=== PATIENT | female | born 1960 | race Caucasian/White ===

== ENCOUNTER 2022-07-05 15:49 | Outpatient (CLI) | payer OTHER, SELFPAY ==
[2022-07-05 18:22] LABS: Basophils Absolute Auto 0.1 K/mm3 (0.0-0.1); Basophils Percent Auto 0.9 % (0.2-1.2); Eosinophils Absolute Auto 0.1 K/mm3 (0-0.3); Eosinophils Percent Auto 1.8 % (0-4.4); Immature Granulocyte Absolute 0.01 K/mm3 (0.00-0.031); Immature Granulocyte Percent A 0.1 % (0-0.5); Lymphocytes Absolute Auto 2.05 K/mm3 (0.9-3.2); Lymphocytes Percent Auto 26.5 % (18.3-44.2); Mean Corpuscular HGB Conc 33.3 g/dl (32-36); Mean Corpuscular Volume 89.9 fl (80-100); Mean Platelet Volume 10.5 fl (7.4-10.4); Monocytes Absolute Auto 0.6 K/mm3 (0.1-0.6); Monocytes Percent Auto 8.3 % (2.6-8.5); Neutrophils Absolute Auto 4.8 K/mm3 (1.3-6.7); Neutrophils Percent Auto 62.4 % (45.5-73.1); Platelet Count Result 251 k/mm3 (150-375); Red Blood Count 4.67 M/mm3 (4.2-5.4); Red Cell Distribution Width 12.8 % (11.5-14.5); White Blood Count 7.7 K/mm3 (4.5-10.0)
[2022-07-05 19:17] LABS: Alanine Aminotransferase 56 U/L (6-35); Albumin Level 4.6 g/dL (3.5-5.1); Alkaline Phosphatase 75 U/L (38-126); Anion Gap 13 mmol/L (8-16); Aspartate Amino Transferase 69 U/L (14-36); Bilirubin,Total 0.3 mg/dL (0.2-1.3); Blood Urea Nitrogen 16 mg/dL (7-17); Calcium 9.5 mg/dL (8.4-10.2); Carbon Dioxide 26 mmol/L (22-30); Chloride 96 mmol/L (98-107); Estimated Glomerular Filt Rate > 60; Glucose 89 mg/dL (65-110); Potassium 3.8 mmol/L (3.4-5.0); Sodium 135 mmol/L (137-145)
[2022-07-05 19:48] LABS: Hemoglobin A1C 6.5 % (<5.7)
== END 2022-07-05 15:50 | disposition home or self-care (01) ==
LOC: ANHGOSHLAB 15:50
PROVIDERS: PCP Family Medicine; Visit Provider Nurse Practitioner Family
DX: E11.9 Type 2 diabetes mellitus without complications (principal); I10 Essential (primary) hypertension
CPT/HCPCS: 36415; 80053; 83036; 85025

== ENCOUNTER 2023-01-03 15:22 | Outpatient (CLI) | payer OTHER, SELFPAY ==
[2023-01-03 19:10] LABS: Basophils Absolute Auto 0.1 K/mm3 (0.0-0.1); Basophils Percent Auto 0.9 % (0.2-1.2); Eosinophils Absolute Auto 0.1 K/mm3 (0-0.3); Eosinophils Percent Auto 1.1 % (0-4.4); Hematocrit 43.7 % (37.0-47.0); Hemoglobin 14.6 g/dL (12.0-15.0); Immature Granulocyte Absolute 0.03 K/mm3 (0.00-0.031); Immature Granulocyte Percent A 0.4 % (0-0.5); Lymphocytes Absolute Auto 1.65 K/mm3 (0.9-3.2); Lymphocytes Percent Auto 22.2 % (18.3-44.2); Mean Corpuscular HGB Conc 33.4 g/dl (32-36); Mean Corpuscular Hemoglobin 29.9 pg (26-34); Mean Corpuscular Volume 89.5 fl (80-100); Mean Platelet Volume 10.5 fl (7.4-10.4); Monocytes Absolute Auto 0.5 K/mm3 (0.1-0.6); Monocytes Percent Auto 7.3 % (2.6-8.5); Neutrophils Absolute Auto 5.1 K/mm3 (1.3-6.7); Neutrophils Percent Auto 68.1 % (45.5-73.1); Platelet Count Result 244 k/mm3 (150-375); Red Blood Count 4.88 M/mm3 (4.2-5.4); Red Cell Distribution Width 13.1 % (11.5-14.5); White Blood Count 7.4 K/mm3 (4.5-10.0)
[2023-01-03 19:21] LABS: Alanine Aminotransferase 76 U/L (6-35); Albumin Level 4.8 g/dL (3.5-5.1); Alkaline Phosphatase 78 U/L (38-126); Anion Gap 10 mmol/L (8-16); Aspartate Amino Transferase 85 U/L (14-36); Bilirubin,Total 0.6 mg/dL (0.2-1.3); Blood Urea Nitrogen 13 mg/dL (7-17); Calcium 10.5 mg/dL (8.4-10.2); Carbon Dioxide 31 mmol/L (22-30); Chloride 97 mmol/L (98-107); Estimated Glomerular Filt Rate > 60; Glucose 210 mg/dL (65-110); Potassium 4.2 mmol/L (3.4-5.0); Sodium 138 mmol/L (137-145)
[2023-01-03 19:38] LABS: Hemoglobin A1C 6.8 % (<5.7)
[2023-01-03 20:05] LABS: MALB Creatinine Ratio 16.3 mg/g (0-30); Microalbumin Urine Random 9.8 mg/L (0-16.7)
== END 2023-01-03 15:23 | disposition home or self-care (01) ==
LOC: ANHGOSHLAB 15:23
PROVIDERS: PCP Family Medicine; Visit Provider Nurse Practitioner Family
DX: E11.9 Type 2 diabetes mellitus without complications (principal); I10 Essential (primary) hypertension
CPT/HCPCS: 36415; 80053; 82043; 83036; 85025

== ENCOUNTER 2025-01-15 07:46 | Outpatient (CLI) | payer OTHER, SELFPAY ==
--- NOTE | ~2025-01-15 | XR_ITS ---
AP view of the pelvis and AP and lateral views of the left hip Clinical history: Pain Findings: No acute fracture or dislocation is seen. Osseous alignment is anatomic. Bilateral hip and SI joint spaces are preserved. Soft tissues are unremarkable. Impression: No significant abnormality is seen. Reviewed, dictated and finalized at [facility]. Impression: No significant abnormality is seen.
--- OUTSIDE RECORDS SUMMARY | 2025-01-15 07:51 | XMS_ITS | Clinical Summary ---
Author Organization [facility] Address [address] [place] [address] Phone Care Team Providers Care General Foreman Name Role Phone Lisa Padilla MD Primary Care Provider Allergies No known active allergies Medications metFORMIN (GLUCOPHAGE) 1000 MG Tablet Take 1,000 mg by mouth 2 times daily. 12/10/2020 Active gabapentin (NEURONTIN) 300 MG Capsule TAKE 1 CAPSULE BY MOUTH EVERY 8 HOURS 12/10/2020 Active ALPRAZolam (XANAX) 0.25 MG Tablet TAKE 1 TABLET BY MOUTH TWICE DAILY NEEDED FOR ANXIETY 01/22/2021 Active celecoxib (CeleBREX) 100 MG Capsule TAKE 1 CAPSULE BY MOUTH DAILY 01/18/2021 Active lisinopril-hydr oCHLOROthiazide (PRINZIDE, ZESTORETIC) 20-25 MG Tablet Take 1 Tablet by mouth daily. 01/29/2021 Active simvastatin (ZOCOR) 40 MG Tablet TAKE ONE TABLET BY MOUTH EVERY EVENING 01/28/2021 Active Multiple Vitamin (MULTI-VITAMIN PO) Take by mouth. Active Calcium Carbonate (CALCIUM 600 PO) Take by mouth. Active Magnesium 250 MG Tablet Take by mouth. Active Active Problems No known active problems Encounters Date Type Department Care Team Description 12/03/2024 2:58 PM VETERINARY VIRUS SERUM INSPECTOR - 12/03/2024 11:59 PM VETERINARY VIRUS SERUM INSPECTOR Hospital Encounter [facility] [address] [place] [address] Edward Padilla MD Discharge Disposition: Discharged to home or Selfcare 12/03/2024 Travel from Last 3 Months Immunizations Immunization Administration Dates Next Due Covid-19, Mrna, Lnp-s, Pf, 30 Mcg/0.3 Ml Dose (P fizer) 01/12/2021 Family History Medical History Relation Name Comments Hypertension Father Diabetes Maternal Grandmother Hypertension Mother Leukemia/Lymphoma Mother Stroke Mother Relation Name Status Comments Father Maternal Grandmother Mother Social History Tobacco Use Types Packs/Day Years Used Date Smoking Tobacco: Never Smokeless Tobacco: Never Tobacco Cessation:Counseling Given: No Alcohol Use Standard Drinks/Week Comments Not Currently 0 (1 standard drink = 0.6 oz pur e alcohol) Sexually Active Control Partners Comments Not Currently Comments No Sex and Gender Information Value Date Recorded Sex Assigned at Not on file Legal Sex Female 9:54 PM CDT Gender Identity Not on file Sexual Orientation Not on file Last Filed Vital Signs Vital Sign Reading Time Taken Comments Blood Pressure 122/86 02/02/2021 2:08 PM CDT Pulse 82 02/02/2021 2:08 PM CDT Temperature 36.3 C (97.3 F) 02/02/2021 2:08 PM CDT Respiratory Rate 16 02/02/2021 2:08 PM CDT Oxygen Saturation 98% 02/02/2021 2:08 PM CDT Inhaled Oxygen Concentration - - Weight 85.7 kg (189 lb) 02/02/2021 2:08 PM CDT Height 170.2 cm (5' 7 ) 02/02/2021 2:08 PM CDT Body Mass Index 29.6 02/02/2021 2:08 PM CDT Plan of Treatment Health Maintenance Due Date Last Done Comments Hepatitis C Virus (HCV) Screening 1960 TdaP Immunization 1960 Pap Smear 1981 Cervical Cancer Screening (CCS) 1990 HPV/Cotest 1990 Colonoscopy 2005 Colorectal Cancer Screening 2005 Cologuard 2010 Immunochemical Fecal Occult Blood 2010 Pneumococcal Immunization (50+ years) (1 of 1 - PCV) 2010 Zoster Immunization (1 of 2) 2010 Influenza Immunization (#1) 2024 SARS-COV-2 Immunization ( season) 2024 10/11/2022, 04/19/2022, 08/18/2021, Additional history exists Mammogram 12/03/2025 12/03/2024, 12/11, 03/11/2018, Additional history exists Respiratory Syncytial Virus (RSV) Immunization (Adult) (1 - 1-dose 75+ series) 2035 Hepatitis B Immunization Aged Out No longer eligible based on patient's age to complete this topic Meningococcal Immunization (ACWY) Aged Out No longer eligible based on patient's age to complete this topic Pneumococcal Immunization Combined Aged Out No longer eligible based on patient's age to complete this topic Rotavirus Immunization Aged Out No lo nger eligible based on patient's age to complete this topic Procedures Procedure Name Priority Date/Time Associated Diagnosis Comments RERE SCREENING BILATERAL DIGITAL W CAD W SADIE Routine 12/03/2024 3:25 PM VETERINARY VIRUS SERUM INSPECTOR Visit for screening mammogram from Last 3 Months Results * RERE SCREENING BILATERAL DIGITAL W CAD W SADIE (12/03/2024 3:25 PM VETERINARY VIRUS SERUM INSPECTOR) Anatomical Region Laterality Modality breast Bilateral Mammography 12/03/2024 2:59 PM VETERINARY VIRUS SERUM INSPECTOR Narrative 12/06/2024 7:18 AM VETERINARY VIRUS SERUM INSPECTOR - RERE SCREENING BILATERAL DIGITAL W CAD W SADIE BILATERAL DIGITAL SCREENING MAMMOGRAM 3D/2D WITH CAD WITH MEDIOLATERAL OBLIQUE CRANIOCAUDAL: 12/03/2024 The study was acquired using digital technology and interpreted from soft copy. Current study was also evaluated with ICAD version 7.2. 2D digital mammographic views, as well as 3D digital tomosynthesis were performed in the CC and MLO projections. CLINICAL: Routine screening. Patient has no complaints. No personal history of cancer. No family history of breast cancer. COMPARISONS: Comparison is made to exams dated: 12/23/2020, 03/11/2018, and 02/22/2017 [facility]. BREAST TISSUE:The breasts are heterogeneously dense, which may obscure small masses. FINDINGS: There are benign calcifications in the right breast. There also are benign vascular calcifications in both breasts. No significant masses, calcifications, or other findings are seen in either breast. There has been no significant interval change. IMPRESSION: BENIGN There is no mammographic evidence of malignancy. A 1 year screening mammogram is recommended. A letter will be sent to the patient with these results. The patient will be entered into a reminder system with a target due date of 1 year for her next screening exam. Electronically signed by: Blossom river/penrad:12/03/2024 17:09:43 Genetics Teacher(s): RT Louis(R)(M), [facility] letter sent: Normal Exam Reading location: [facility] Mammogram BI-RADS: Category 2: Benign Procedure Note Blossom Castanon MD - 12/06/2024 - RERE SCREENING BILATERAL DIGITAL W CAD W SADIE BILATERAL DIGITAL SCREENING MAMMOGRAM 3D/2D WITH CAD WITH MEDIOLATERAL OBLIQUE CRANIOCAUDAL: 12/03/2024 The study was acquired using digital technology and interpreted from soft copy. Current study was also evaluated with ICAD version 7.2. 2D digital mammographic views, as well as 3D digital tomosynthesis were performed in the CC and MLO projections. CLINICAL: Routine screening. Patient has no complaints. No personal history of cancer. No family history of breast cancer. COMPARISONS: Comparison is made to exams dated: 12/23/2020, 03/11/2018, and 02/22/2017 [facility]. BREAST TISSUE:The breasts are heterogeneously dense, which may obscure small masses. FINDINGS: There are benign calcifications in the right breast. There also are benign vascular calcifications in both breasts. No significant masses, calcifications, or other findings are seen in either breast. There has been no significant interval change. IMPRESSION: BENIGN There is no mammographic evidence of malignancy. A 1 year screening mammogram is recommended. A letter will be sent to the patient with these results. The patient will be entered into a reminder system with a target due date of 1 year for her next screening exam. Electronically signed by: Blossom river/penrad:12/03/2024 17:09:43 Genetics Teacher(s): RT Louis(R)(M), [facility] letter sent: Normal Exam Reading location: [facility] Mammogram BI-RADS: Category 2: Benign Lisa Padilla MD IMG MAMMO ORDERABLES F inal Result from Last 3 Months Insurance [employer]bag Care Teams General Foreman Relationship Specialty Start Date End Date Lisa Padilla MD PCP - General Family Medicine 03/11/18
[2025-01-15 08:13] LABS: Eosinophils Absolute Auto 0.1 K/mm3 (0-0.3); Eosinophils Percent Auto 1.9 % (0-4.4); Hematocrit 44.3 % (37.0-47.0); Hemoglobin 14.6 g/dL (12.0-15.0); Lymphocytes Absolute Auto 1.26 K/mm3 (0.9-3.2); Lymphocytes Percent Auto 30.7 % (18.3-44.2); Mean Corpuscular Volume 91.2 fl (80-100); Mean Platelet Volume 9.7 fl (7.4-10.4); Monocytes Absolute Auto 0.5 K/mm3 (0.1-0.6); Monocytes Percent Auto 11.2 % (2.6-8.5); Neutrophils Absolute Auto 2.3 K/mm3 (1.3-6.7); Neutrophils Percent Auto 55.2 % (45.5-73.1); Platelet Count Result 210 k/mm3 (150-375); Red Blood Count 4.86 M/mm3 (4.2-5.4); Red Cell Distribution Width 12.7 % (11.5-14.5); White Blood Count 4.1 K/mm3 (4.5-10.0)
[2025-01-15 08:24] LABS: Alanine Aminotransferase 26 U/L (6-35); Albumin Level 4.8 g/dL (3.5-5.1); Alkaline Phosphatase 93 U/L (38-126); Anion Gap 7 mmol/L (4-12); Aspartate Amino Transferase 35 U/L (14-36); Bilirubin,Total 0.8 mg/dL (0.2-1.3); Blood Urea Nitrogen 17 mg/dL (7-17); Calcium 10.4 mg/dL (8.4-10.2); Carbon Dioxide 33 mmol/L (22-30); Chloride 98 mmol/L (98-107); Cholesterol 167 mg/dL (0-200); Estimated Glomerular Filt Rate > 60; Glucose 107 mg/dL (65-110); HDL Direct 61 mg/dL; Potassium 3.8 mmol/L (3.4-5.0); Sodium 138 mmol/L (137-145); Triglycerides 103 mg/dL (<150)
[2025-01-15 08:35] LABS: LDL Cholesterol Direct 79 mg/dL
[2025-01-15 09:13] LABS: Vitamin D 25 Hydroxy 64.8 ng/mL
== END 2025-01-15 07:47 | disposition home or self-care (01) ==
LOC: ANHLAB 07:49
PROVIDERS: PCP Nurse Practitioner Family; Visit Provider Nurse Practitioner Family
DX: M25.552 Pain in left hip (principal); E78.5 Hyperlipidemia, unspecified; I10 Essential (primary) hypertension; E55.9 Vitamin D deficiency, unspecified; E11.9 Type 2 diabetes mellitus without complications
CPT/HCPCS: 36415; 73502; 80053; 80061; 82306; 83036; 84443; 85025

== ENCOUNTER 2025-07-29 08:21 | Outpatient (CLI) | payer OTHER, SELFPAY ==
--- OUTSIDE RECORDS SUMMARY | 2025-07-29 08:30 | XMS_ITS | Clinical Summary ---
Author Organization [facility] Address [address] [place] [address] Phone Care Team Providers Care Scarf And Anneal Operator Name Role Phone Lisa Padilla MD Primary [...] Active Active Problems No known active problems Immunizations Immunization Administration Dates Next Due Covid-19, Mrna, Lnp-s, Pf, 30 Mcg/0.3 Ml Dose (Emma fizer) 01/12/2021 Family History Medical History Relation [...] 2:08 PM CDT Height 170.2 cm (5' 7) 02/02/2021 2:08 PM CDT Body Mass Index 29.6 02/02/2021 2:08 PM CDT Plan of Treatment Health Maintenance Due Date Last Done Comments Hepatitis C Virus (HCV) Screening 1960 TdaP Immunization 1960 Cologuard 2005 Colonoscopy 2005 Colorectal Cancer Screening 2005 Immunochemical Fecal Occult Blood 2005 Pneumococcal Immunization (50+ years) (1 of 1 - PCV) 2010 Zoster Immunization (1 of 2) 2010 DEXA Bone Density 12/23/2022 12/23/2020 Influenza Immunization (#1) 2025 SARS-COV-2 Immunization ( season) 2025 10/11/2022, 04/19/2022, 08/18/2021, Additional history exists Mammogram 12/03/2025 12/03/2024, 12/11, 03/11/2018, Additional history exists Respiratory Syncytial Virus (RSV) Immunization (Adult) (1 - 1-dose 75+ series) 2035 Hepatitis B Immunization Aged Out No longer eligible based on patient's age to complete this topic Human Papillomavirus (HPV) Immunization Aged Out No longer eligible based on patient's age to complete this topic Meningococcal Immunization (ACWY) Aged Out No longer eligible based on patient's age to complete this topic Rotavirus Immunization Aged Out No lo nger eligible based on patient's age to complete this topic Procedures Procedure Name Priority Date/Time Associated Diagnosis Comments [facility] SCREENING BILATERAL DIGITAL W CAD W SADIE Routine 12/03/2024 3:25 PM KILN REMOVER Visit for screening mammogram [facility] BONE DENSITOMETRY AXIAL SKELETON Routine 12/23/2020 10:30 AM KILN REMOVER Asymptomatic menopausal state from Last 3 Months or Most Recently Relevant to Health Maintenance Results * [facility] SCREENING BILATERAL DIGITAL W CAD W SADIE (12/03/2024 3:25 PM KILN REMOVER) Anatomical Region Laterality Modality breast Bilateral Mammography 12/03/2024 2:59 PM KILN REMOVER Narrative 12/06/2024 7:18 AM KILN REMOVER - [facility] SCREENING BILATERAL DIGITAL W CAD W SADIE [...] dated: 12/23/2020, 03/11/2018, and 02/22/2017 [facility]. BREAST TISSUE:The breasts are heterogeneously dense, [...] next screening exam. Electronically signed by: Blossom river/abdiaziz:12/03/2024 17:09:43 Sap Consultant(s): RT Louis(R)(M), [facility] letter sent: Normal Exam Reading location: [...] to exams dated: 12/23/2020, 03/11/2018, and 02/22/2017 [facility]. BREAST TISSUE:The breasts are heterogeneously dense, [...] next screening exam. Electronically signed by: Blossom river/abdiaziz:12/03/2024 17:09:43 Sap Consultant(s): RT Louis(R)(M), [facility] letter sent: Normal Exam Reading location: [facility] Mammogram BI-RADS: Category 2: Benign us Lisa Padilla MD IMG MAMMO ORDERABLES F inal Result * RERE BONE DENSITOMETRY AXIAL SKELETON (12/23/2020 10:30 AM KILN REMOVER) Anatomical Region Laterality Modality BODY N/A Other 12/23/2020 3:44 PM KILN REMOVER Impressions 12/23/2020 3:47 PM KILN REMOVER IMPRESSION: Low bone mass. FRAX as above. REFERENCE: Bone mineral density: Normal (T-score above or = -1.0) Low bone mass (T-score between -1.0 and -2.5) replaces the previously used term osteopenia Osteoporosis (T-score = or below -2.5) Medical evaluation for secondary causes of low bone mineral density may be appropriate. FRAX is a World Health Organization validated fracture risk assessment tool that calculates a person's 10 year probability of a major osteoporosis related fracture and hip fracture. According to the National Osteoporosis Foundation guidelines, postmenopausal women and men age 50 or older with low bone mass and a 10 year probability of a major osteoporosis related fracture = or greater than 20% or a 10 year probability of a hip fracture = or greater than 3% should be considered for treatment. For further information, including treatment recommendations, please refer to the 2013 ISCD Official Positions (http://www.iscd.org) and the NOF's Clinician's Guide to Prevention and Treatment of Osteoporosis (http://www.nof.org/professionals/clinical-guidelines) Narrative 12/23/2020 3:47 PM KILN REMOVER EXAM DESCRIPTION: [facility] BONE DENSITOMETRY AXIAL SKELETON REASON FOR STUDY: 60 year old female with given history of asymptomatic menopausal state. 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 Reported use of vitamin-D, multivitamin, and calcium. COMPARISON: None available. FINDINGS: AP LUMBAR SPINE L1-L4: Total BMD is 0.978 g/cm2 T-score is -1.8 LEFT HIP: Total BMD is 0.817 g/cm2 T-score is -1.5 Femoral neck BMD is 0.752 g/cm2 T-score is -2.1 Fracture risk assessment (FRAX): 10 year risk for a major osteoporotic fracture is 9.6 % 10 year risk for a hip fracture is 1.3 % The FRAX tool has not been validated in patients currently or previously treated with pharmacotherapy for osteoporosis. In such patients, clinical judgement must be exercised in interpreting FRAX scores as the fracture risk may be overestimated. THIS IS AN ELECTRONICALLY VERIFIED FINAL REPORT 12/23/2020 3:44 PM - Electronically signed by Martin Borges M.D., MD: Report ID: [id number] Reading Location: [place] [id number] Procedure Note Martin Boregs MD - 12/23/2020 EXAM DESCRIPTION: [facility] BONE DENSITOMETRY AXIAL SKELETON REASON FOR STUDY: 60 year old female with given history of asymptomatic menopausal state. 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 Reported use of vitamin-D, multivitamin, and calcium. COMPARISON: None available. FINDINGS: AP LUMBAR SPINE L1-L4: Total BMD is 0.978 g/cm2 T-score is -1.8 LEFT HIP: Total BMD is 0.817 g/cm2 T-score is -1.5 Femoral neck BMD is 0.752 g/cm2 T-score is -2.1 Fracture risk assessment (FRAX): 10 year risk for a major osteoporotic fracture is 9.6 % 10 year risk for a hip fracture is 1.3 % The FRAX tool has not been validated in patients currently or previously treated with pharmacotherapy for osteoporosis. In such patients, clinical judgement must be exercised in interpreting FRAX scores as the fracture risk may be overestimated. THIS IS AN ELECTRONICALLY VERIFIED FINAL REPORT 12/23/2020 3:44 PM - Electronically signed by Martin Borges M.D., MD: Report ID: [id number] Reading Location: [id number] IMPRESSION: Low bone mass. FRAX as above. REFERENCE: Bone mineral density: Normal (T-score above or = -1.0) Low bone mass (T-score between -1.0 and -2.5) replaces the previously used term osteopenia Osteoporosis (T-score = or below -2.5) Medical evaluation for secondary causes of low bone mineral density may be appropriate. FRAX is a World Health Organization validated fracture risk assessment tool that calculates a person's 10 year probability of a major osteoporosis related fracture and hip fracture. According to the National Osteoporosis Foundation guidelines, postmenopausal women and men age 50 or older with low bone mass and a 10 year probability of a major osteoporosis related fracture = or greater than 20% or a 10 year probability of a hip fracture = or greater than 3% should be considered for treatment. For further information, including treatment recommendations, please refer to the 2013 ISCD Official Positions (http://www.iscd.org) and the NOF's Clinician's Guide to Prevention and Treatment of Osteoporosis (http://www.nof.org/professionals/clinical-guidelines) Lisa Padilla MD IMG DEXA ORDERABLES Fi nal Result from Last 3 Months or Most Recently Relevant to Health Maintenance Insurance [employer] Care Teams Scarf And Anneal Operator Relationship Specialty Start Date End Date Lisa Padilla MD PCP - General Family Medicine 03/11/18
[2025-07-29 12:49] LABS: Hematocrit 44.4 % (37.0-47.0); Hemoglobin 14.6 g/dL (12.0-15.0); Immature Granulocyte Percent A 0.2 % (0-0.5); Lymphocytes Absolute Auto 1.43 K/mm3 (0.9-3.2); Mean Corpuscular HGB Conc 32.9 g/dl (32-36); Mean Corpuscular Hemoglobin 30.5 pg (26-34); Mean Corpuscular Volume 92.7 fl (80-100); Nucleated Red Blood Cells Absolute Auto 0.000 K/mm3 (0.0-0.012); Nucleated Red Blood Cells Perc 0.0 % (0.0-0.2); Platelet Count Result 236 k/mm3 (150-375); Red Blood Count 4.79 M/mm3 (4.2-5.4); White Blood Count 5.1 K/mm3 (4.5-10.0)
[2025-07-29 13:16] LABS: Alanine Aminotransferase 60 U/L (6-35); Albumin Level 4.7 g/dL (3.5-5.1); Alkaline Phosphatase 90 U/L (38-126); Anion Gap 8 mmol/L (4-12); Aspartate Amino Transferase 81 U/L (14-36); Bilirubin,Total 0.7 mg/dL (0.2-1.3); Blood Urea Nitrogen 14 mg/dL (7-17); Calcium 10.2 mg/dL (8.4-10.2); Carbon Dioxide 31 mmol/L (22-30); Chloride 99 mmol/L (98-107); Cholesterol 147 mg/dL (0-200); Estimated Glomerular Filt Rate > 60; Glucose 109 mg/dL (65-110); HDL Direct 53 mg/dL; Magnesium 2.0 mg/dL (1.6-2.3); Potassium 4.2 mmol/L (3.4-5.0); Sodium 138 mmol/L (137-145); Total Protein 8.2 g/dL (6.3-8.2); Triglycerides 121 mg/dL (<150)
[2025-07-29 13:32] LABS: MALB Creatinine Ratio 15.8 mg/g (0-30)
[2025-07-29 13:35] LABS: Thyroid Stimulating Hormone Reflex 0.782 uIU/mL (0.465-4.68)
[2025-07-29 13:44] LABS: Hemoglobin A1C 6.1 % (<5.7)
[2025-07-29 14:49] LABS: Vitamin B12 951.0 pg/mL (239-931)
== END 2025-07-29 08:22 | disposition home or self-care (01) ==
LOC: ANHGOSHLAB 08:22
PROVIDERS: PCP Family Medicine; Visit Provider Nurse Practitioner Family
DX: E78.5 Hyperlipidemia, unspecified (principal); I10 Essential (primary) hypertension; E11.42 Type 2 diabetes mellitus with diabetic polyneuropathy; E55.9 Vitamin D deficiency, unspecified
CPT/HCPCS: 36415; 80053; 80061; 82043; 82306; 82607; 83036; 83735; 84443; 85025